=== PATIENT | female | born 1980 | race Caucasian/White ===

== ENCOUNTER 2019-12-17 14:35 | Emergency (ER) | payer OTHER ==
--- NOTE | 2019-12-17 16:04 | Emergency Department Report ---
Chief Complaint: Hyperglycemia Stated Complaint: SUGAR HIGH Time Seen by Provider: 12/17/19 16:02 - HPI History of Present Illness: the pt is a 39 y/o f p/w a cc of dizziness and hyperglycemia. Pt staes shes had dizziness, polyuria, polydipsia and a dry mouth x 2 days. Pt says she has been compliant with her metformin - Exam Vital Signs: Vital Signs 12/17/19 16:01 Temperature 98.6 F Pulse Rate 93 H Respiratory 12 Rate Blood Pressure 188/101 [Left] O2 Sat by Pulse 100 Oximetry MSE screening note: Focused history and physical exam performed. Due to findings the following was ordered: cbc, cmp, u/a, anshul ph ED Disposition for MSE Condition: Stable
[2019-12-17 16:36] LABS: Bacteria,Urine 1+ /HPF (Negative); Bilirubin,Urine NEG (Negative); Blood,Urine NEG (Negative); Color,Urine Yellow (Yellow); Mucus,Urine FEW /HPF; Protein,Urine <15 mg/dL mg/dL (Negative); Urobilinogen,Urine < 2.0 mg/dL (<2.0)
[2019-12-17 16:45] LABS: Basophils % (Auto) 0.5 % (0.0-1.8); Eosinophils # (Auto) 0.1 K/mm3 (0.0-0.4); Eosinophils % (Auto) 0.8 % (0.0-4.3); Hematocrit 42.4 % (30.3-42.9); Hemoglobin 14.8 gm/dl (10.1-14.3); Lymphocytes # (Auto) 1.8 K/mm3 (1.2-5.4); Lymphocytes % (Auto) 24.5 % (13.4-35.0); Mean Corpuscular HGB Conc 35 % (30-34); Mean Corpuscular Volume 82 fl (79-97); Monocytes # (Auto) 0.5 K/mm3 (0.0-0.8); Monocytes % (Auto) 6.9 % (0.0-7.3); Platelet Count 198 K/mm3 (140-440); Red Blood Count 5.18 M/mm3 (3.65-5.03); Red Cell Distribution Width 14.2 % (13.2-15.2)
[2019-12-17 17:07] LABS: Alanine Aminotransferase 95 units/L (7-56); Albumin 4.5 g/dL (3.9-5); BUN/Creatinine Ratio 16; Blood Urea Nitrogen 11 mg/dL (7-17); Calcium 9.5 mg/dL (8.4-10.2); Hemolysis Index 6
[2019-12-17] MEDS ORDERED: SODIUM CHLORIDE 0.9% 1000 ML 1,000 ML IV ONE (19:43)
[2019-12-17] MEDS ORDERED: MIDAZOLAM 5 MG/5 ML INJ MDV IV STA (19:43)
[2019-12-17] MEDS ORDERED: KETOROLAC 30 MG/1 ML INJ IV ONE (19:43)
[2019-12-17] MEDS ORDERED: INSULIN REGULAR, HUMAN 100 UNITS/1 ML IV ONE (19:43)
--- NOTE | 2019-12-17 19:47 | Emergency Department Report ---
ED General Adult HPI - General Chief complaint: Hyperglycemia Stated complaint: SUGAR HIGH Time Seen by Provider: 12/17/19 16:02 Source: patient, RN notes reviewed Mode of arrival: Ambulatory Limitations: No Limitations - History of Present Illness Initial comments: Patient is a pleasant 39-year-old female. This patient is not known to myself previously. She has a history of morbid obesity, hypertension and diabetes, in the past, she has followed at [facility]. She presents to the ER today with a complaint of high blood sugar, weakness, dizziness, fatigue, mild headache, and generalized anxiety. She reports feeling generalized weakness, went to her friend's house, checked her sugar, found it to be high at 440, and then presented to the emergency room. She became very anxious about this, and then developed a headache which was occipital. Headache is not sudden or thunderclap in nature. Headache is not maximal in intensity within an hour. There is no recent trauma, chiropractic manipulation, and no massage therapy, or motor vehic le accident. The patient denies chest pain, abdominal pain, shortness of breath, dysuria, hematuria. She denies focal extremity weakness and or numbness. She reports that she needs to follow-up with a local primary care doctor as she recently moved back into [facility]. She takes metformin 500 mg twice daily, and endorses compliance. -: Gradual, hour(s) Location: head Consistency: intermittent Improves with: medication Worsens with: none - Related Data Allergies Allergy/AdvReac Type Severity Reaction Status Date / Time No Known Allergies Allergy Verified 12/17/19 20:03 ED Review of Systems ROS: Stated complaint: SUGAR HIGH Other details as noted in HPI Constitutional: malaise. denies: fever Eyes: denies: eye discharge, vision change ENT: denies: congestion Respiratory: denies: cough, wheezing Cardiovascular: denies: chest pain Gastrointestinal: denies: nausea, vomiting, diarrhea Genitourinary: denies: dysuria Neurological: headache, weakness Psychiatric: anxiety Hematological/Lymphatic: denies: easy bleeding ED Past Medical Hx - Past Medical History Previous Medical History?: Yes Hx Hypertension: Yes Hx Diabetes: Yes - Surgical History Past Surgical History?: Yes Additional Surgical History: x 2 , groin hernia - Social History Smoking Status: Never Smoker Substance Use Type: None ED Physical Exam - General Limitations: No Limitations General appearance: alert, in no apparent distress, obese - Head Head exam: Present: atraumatic, normocephalic - Eye Eye exam: Present: normal appearance, PERRL, EOMI, other (Visual acuity intact to finger counting, color perception, reading at a close distance). Absent: nystagmus - ENT ENT exam: Present: normal exam, normal orophraynx, mucous membranes moist, normal external ear exam - Neck Neck exam: Present: normal inspection, full ROM. Absent: tenderness, meningismus - Respiratory Respiratory exam: Present: normal lung sounds bilaterally. Absent: respiratory distress - Cardiovascular Cardiovascular Exam: Present: regular rate, normal rhythm, normal heart sounds. Absent: bradycardia, tachycardia, irregular rhythm, systolic murmur, diastolic murmur, rubs, gallop - GI/Abdominal GI/Abdominal exam: Present: soft, normal bowel sounds. Absent: distended, tenderness, guarding, rebound, rigid, pulsatile mass - Extremities Exam Extremities exam: Present: normal inspection, full ROM, other (2+ pulses noted in the bilateral upper and lower extremities. There is no palpable cord. negative Homans sign. Muscular compartments are soft. The pelvis is stable.). Absent: pedal edema, calf tenderness - Back Exam Back exam: Present: normal inspection, full ROM. Absent: tenderness, CVA tenderness (R), CVA tenderness (L), paraspinal tenderness, vertebral tenderness - Neurological Exam Neurological exam: Present: alert, oriented X3, normal gait, other (There is no facial droop. The tongue is midline. Extraocular movements are intact bilaterally. There is 5 out of 5 strength in bilateral upper and lower extremities. Sensation is intact to light touch bilateral upper and lower extremities. There is no past-pointing. There is no pronator drift. There is normal [id number]. There is a normal gait.). Absent: motor sensory deficit - Psychiatric Psychiatric exam: Present: anxious - Skin Skin exam: Present: warm, dry, intact, normal color. Absent: rash ED Course Vital Signs 12/17/19 12/17/19 12/17/19 16:01 19:43 20:22 Temperature 98.6 F 97.9 F Pulse Rate 93 H 89 Respiratory 12 16 16 Rate Blood Pressure 188/101 152/81 [Left] O2 Sat by Pulse 100 98 Oximetry 12/17/19 20:31 Temperature Pulse Rate 87 Respiratory 14 Rate Blood Pressure 119/56 [Left] O2 Sat by Pulse 99 Oximetry ED Medical Decision Making - Lab Data Result diagrams: 12/17/19 16:22 12/17/19 16:22 Vital Signs - 24 hr 12/17/19 12/17/19 12/17/19 16:01 19:43 20:22 Temperature 98.6 F 97.9 F Pulse Rate 93 H 89 Respiratory 12 16 16 Rate Blood Pressure 188/101 152/81 [Left] O2 Sat by Pulse 100 98 Oximetry 12/17/19 20:31 Temperature Pulse Rate 87 Respiratory 14 Rate Blood Pressure 119/56 [Left] O2 Sat by Pulse 99 Oximetry Lab Results 12/17/19 12/17/19 12/17/19 Range/Units 14:56 16:20 16:22 WBC 7.2 (4.5-11.0) K/mm3 RBC 5.18 H (3.65-5.03) M/mm3 Hgb 14.8 H (10.1-14.3) gm/dl Hct 42.4 (30.3-42.9) % MCV 82 (79-97) fl MCH 29 (28-32) pg MCHC 35 H (30-34) % RDW 14.2 (13.2-15.2) % Plt Count 198 (140-440) K/mm3 Lymph % (Auto) 24.5 (13.4-35.0) % [place] % (Auto) 6.9 (0.0-7.3) % Eos % (Auto) 0.8 (0.0-4.3) % Baso % (Auto) 0.5 (0.0-1.8) % Lymph # 1.8 (1.2-5.4) K/mm3 [place] # 0.5 (0.0-0.8) K/mm3 Eos # 0.1 (0.0-0.4) K/mm3 Baso # 0.0 (0.0-0.1) K/mm3 Seg Neutrophils % 67.3 (40.0-70.0) % Seg Neutrophils # 4.9 (1.8-7.7) K/mm3 Sodium (137-145) mmol/L Potassium (3.6-5.0) mmol/L Chloride (98-107) mmol/L Carbon Dioxide (22-30) mmol/L Anion Gap mmol/L BUN (7-17) mg/dL Creatinine (0.7-1.2) mg/dL Estimated GFR ml/min BUN/Creatinine Ratio % Glucose (65-100) mg/dL POC Glucose 333 H (70-105) Calcium (8.4-10.2) mg/dL Magnesium (1.7-2.3) mg/dL Total Bilirubin (0.1-1.2) mg/dL AST (5-40) units/L ALT (7-56) units/L Alkaline Phosphatase (35-129) units/L Total Creatine Kinase (30-135) units/L Total Protein (6.3-8.2) g/dL Albumin (3.9-5) g/dL Albumin/Globulin Ratio % Urine Color Yellow (Yellow) Urine Turbidity Clear (Clear) Urine pH 5.0 (5.0-7.0) Ur Specific [place] 1.021 (1.003-1.030) Urine Protein <15 mg/dl (Negative) mg/dL Urine Glucose (UA) >=500 (Negative) mg/dL Urine Ketones Neg (Negative) mg/dL Urine Blood Neg (Negative) Urine Nitrite Neg (Negative) Urine Bilirubin Neg (Negative) Urine Urobilinogen < 2.0 (<2.0) mg/dL Ur Leukocyte Esterase Neg (Negative) Urine WBC (Auto) 2.0 (0.0-6.0) /HPF Urine RBC (Auto) 2.0 (0.0-6.0) /HPF U Epithel Cells (Auto) 3.0 (0-13.0) /HPF Urine Bacteria (Auto) 1+ (Negative) /HPF Urine Mucus Few /HPF 12/17/19 12/17/19 12/17/19 Range/Units 16:22 16:22 20:10 WBC (4.5-11.0) K/mm3 RBC (3.65-5.03) M/mm3 Hgb (10.1-14.3) gm/dl Hct (30.3-42.9) % MCV (79-97) fl MCH (28-32) pg MCHC (30-34) % RDW (13.2-15.2) % Plt Count (140-440) K/mm3 Lymph % (Auto) (13.4-35.0) % [place] % (Auto) (0.0-7.3) % Eos % (Auto) (0.0-4.3) % Baso % (Auto) (0.0-1.8) % Lymph # (1.2-5.4) K/mm3 [place] # (0.0-0.8) K/mm3 Eos # (0.0-0.4) K/mm3 Baso # (0.0-0.1) K/mm3 Seg Neutrophils % (40.0-70.0) % Seg Neutrophils # (1.8-7.7) K/mm3 Sodium 136 L (137-145) mmol/L Potassium 4.1 (3.6-5.0) mmol/L Chloride 99.9 (98-107) mmol/L Carbon Dioxide 22 (22-30) mmol/L Anion Gap 18 mmol/L BUN 11 (7-17) mg/dL Creatinine 0.7 (0.7-1.2) mg/dL Estimated GFR > 60 ml/min BUN/Creatinine Ratio 16 % Glucose 334 H (65-100) mg/dL POC Glucose 239 H (70-105) Calcium 9.5 (8.4-10.2) mg/dL Magnesium 1.80 (1.7-2.3) mg/dL Total Bilirubin 0.40 (0.1-1.2) mg/dL AST 69 H (5-40) units/L ALT 95 H (7-56) units/L Alkaline Phosphatase 49 (35-129) units/L Total Creatine Kinase 123 (30-135) units/L Total Protein 7.7 (6.3-8.2) g/dL Albumin 4.5 (3.9-5) g/dL Albumin/Globulin Ratio 1.4 % Urine Color (Yellow) Urine Turbidity (Clear) Urine pH (5.0-7.0) Ur Specific [place] (1.003-1.030) Urine Protein (Negative) mg/dL Urine Glucose (UA) (Negative) mg/dL Urine Ketones (Negative) mg/dL Urine Blood (Negative) Urine Nitrite (Negative) Urine Bilirubin (Negative) Urine Urobilinogen (<2.0) mg/dL Ur Leukocyte Esterase (Negative) Urine WBC (Auto) (0.0-6.0) /HPF Urine RBC (Auto) (0.0-6.0) /HPF U Epithel Cells (Auto) (0-13.0) /HPF Urine Bacteria (Auto) (Negative) /HPF Urine Mucus /HPF - EKG Data -: EKG Interpreted by Me EKG shows normal: sinus rhythm Rate: normal - EKG Data 12/17/19 20:35 There is no prior EKG available for comparison. Sinus rhythm, 88 bpm, normal axis, QTC 445 ms, Q waves noted in the inferior leads. The EKG is abnormal without prior for comparison, the EKG is not consistent with ST elevation myocardial infarction. - Medical Decision Making Differential diagnosis, including but not limited to: Dehydration, hypoglycemia, orthostasis, anxiety, migraine headache, tension headache, cluster headache Assessment and plan: 39-year-old female, not tachypneic, tachycardic or hypoxic, low risk by Wells criteria, perc negative, with hyperglycemia, nonspecific headache. She initially appeared to be quite anxious. She felt much improved after Toradol, fluids, insulin, and Versed. Screening laboratory studies were sent prior to my personal evaluation. They are reviewed and appreciated. The patient does not appear to have an emergent medical condition present at this time. She will need to follow-up with an outpatient primary care doctor. We will provide her with outpatient resources. She is accompanied by her at this time. Return precautions are reviewed. GCS 15, NIH score 0, unremarkable neurologic examination Critical care attestation.: If time is entered above; I have spent that time in minutes in the direct care of this critically ill patient, excluding procedure time. ED Disposition Clinical Impression: Hyperglycemia, History of anxiety, History of headache Disposition: DC-01 TO HOME OR SELFCARE Is pt being admited?: No Does the pt Need Aspirin: No Condition: Stable Additional Instructions: Rest, avoid heavy lifting and strenuous physical activities. Please make certain to adhere to a diabetic appropriate diet. Avoid consumption of simple carbohydrates, sugary drinks. Participate in physical activities as tolerated. Follow-up with a primary care doctor within the next 2 weeks. Laboratory studies today demonstrated mild elevation in blood glucose level, and mild elevation in liver function tests. These should be followed up by a primary care doctor within the next 2 weeks. Recommend patient lose weight as she is able to, and participate in physical activities as she is able to. Patient may reference the [place] [employer] website for instructions on how she can maintain an appropriate diet. Please return to the emergency room right away with new, worsened or different symptoms, or symptoms not present on the initial emergency room evaluation Referrals: EILEEN TROTTER MD [Staff Physician] - 3-5 Days [facility] [Provider Group] - 3-[address] [facility] [Provider Group] - 3-5 Days
[2019-12-17 20:32] VITALS: BP 119/56
== END 2019-12-17 21:32 | disposition home or self-care (01) ==
LOC: ED 14:35
DX: E11.65 Type 2 diabetes mellitus with hyperglycemia (principal); F41.9 Anxiety disorder, unspecified; I10 Essential (primary) hypertension; Z98.890 Other specified postprocedural states
CPT/HCPCS: 36415; 80053; 81001; 82550; 82962; 83735; 85025; 93005; 93010; 96361; 96374; 96375; 99284; J1885; J2250; J7030; J1815